=== PATIENT | female | born 1980 | race African-American/Black ===

== ENCOUNTER 2017-05-10 08:42 | Emergency (ER) | payer OTHER ==
[2017-05-10 08:50] VITALS: BMI 35.1
--- NOTE | 2017-05-10 09:01 | PDOC ---
Attending Attestation - Resident Resident Name: Erica Llanes - ED Attending Attestation I have performed the following: I have examined & evaluated the patient, The case was reviewed & discussed with the resident, I agree w/resident's findings & plan, Exceptions are as noted - HPI HPI: 05/10/17 09:18 37yo F p/w painless vaginal bleeding since last night. Noticed bright red blood on toilet paper after urinating 3 times since. No associated pain, fevers , chills, n/v/d, cp, sob, headache. Last BM last night was normal. TVUS on Friday by OB was wnl. - Physicial Exam PE: 05/10/17 09:19 GENERAL: Awake, alert, and fully oriented, in no acute distress HEAD: No signs of trauma EYES: PERRLA, EOMI, sclera anicteric, conjunctiva clear ENT: Auricles normal inspection, hearing grossly normal, nares patent, oropharynx clear without exudates. Moist mucosa NECK: Normal ROM, supple, no lymphadenopathy, JVD, or masses LUNGS: Breath sounds equal, clear to auscultation bilaterally. No wheezes, and no crackles HEART: Regular rate and rhythm, normal S1 and S2, no murmurs, rubs or gallops ABDOMEN: Soft, nontender, normoactive bowel sounds. No guarding, no rebound. No masses HAM STRINGER: Os closed, no bleeding in vault, no midline or adnexal ttp. No CMT or vag discharge EXTREMITIES: Normal range of motion, no edema. No clubbing or cyanosis. No cords, erythema, or tenderness NEUROLOGICAL: Normal speech, cranial nerves intact, negative pronator drift, 5/ 5 strength in all 4 extremities, normal sensation to light touch in all 4 extremities, normal cerebellar exam, normal gait, normal reflexes and tone SKIN: Warm, Dry, normal turgor, no rashes or lesions noted. - Medical Decision Making 05/10/17 09:23 37yo F p/w vaginal bleeding. Vitals wnl. Likely threatened AB -labs -TVUS -UA -reassess 05/10/17 11:47 TVUs wnl. Labs wnl. UA neg for infection, Ucx pending. No bleeding in ED. Pt feels well. Likely threatened Ab. I discussed the physical exam findings, ancillary test results and final diagnoses with the patient. I answered all of the patient's questions. The patient was satisfied with the care received and felt comfortable with the discharge plan and treatment plan. The patient will call their primary care physician within 24 hours to arrange follow-up and will return to the Emergency Department with any new, persistent or worsening symptoms.
--- NOTE | 2017-05-10 09:10 | PDOC ---
History of Present Illness - General Chief Complaint: Vaginal Bleeding Stated Complaint: VAGINAL BLEEDING (10 WKS ) Time Seen by Provider: 05/10/17 08:57 - History of Present Illness Initial Comments: 05/10/17 09:25 Patient is a 37 y.o. + 2 spontaneous abortions @ 9 and 10 weeks respectively who presents c/o of vaginal bleed. Patient notes she saw bright red blood when wiping during urination. Patient denies any associated abdominal cramping, dysuria, increased urgency or frequency. Of note, patient was evaluated by her conference concierge, Dr. Che earlier this week at which time she had a TVUS and was told everything was "normal." Patient further notes that her previous pregnancies were without complications. NKDA Surgical: Denies Social: denies cigarettes, denies alcohol, denies recreational drugs Past History - Past Medical History Allergies/Adverse Reactions: Allergies Allergy/AdvReac Type Severity Reaction Status Date / Time No Known Allergies Allergy Verified 05/10/17 09:28 Home Medications: Ambulatory Orders Vits #93/Iron Fum/FA [ Formula Tablet] 1 each PO DAILY COPD: No Thyroid Disease: No - Suicide/Smoking/Psychosocial Hx Smoking History: Never smoked Have you smoked in the past 12 months: No Information on smoking cessation initiated: No Hx Alcohol Use: No Drug/Substance Use Hx: No Substance Use Type: None Review of Systems - Review of Systems Constitutional: No: Chills, Fever Respiratory: No: Shortness of Breath Cardiac (ROS): No: Chest Pain ABD/GI: No: Constipated, Diarrhea, Nausea, Vomiting, Abdominal cramping : No: Burning, Dysuria All Other Systems: Reviewed and Negative *Physical Exam - Vital Signs Last Vital Signs Temp Pulse Resp BP Pulse Ox 98.8 F 75 18 106/58 100 05/10/17 08:47 05/10/17 08:47 05/10/17 08:47 05/10/17 08:47 05/10/17 08:47 - Physical Exam General Appearance: Yes: Nourished, Appropriately Dressed Neck: positive: Trachea midline, Supple Respiratory/Chest: positive: Lungs Clear, Normal Breath Sounds Cardiovascular: positive: S1, S2 Female Pelvic Exam: positive: normal external exam, cervical os closed, CMT, other (cervical os closed, no appreciable blood in vaginal vault). negative: discharge, vaginal bleeding Gastrointestinal/Abdominal: positive: Normal Bowel Sounds, Soft. negative: Guarding, Rebound, Tenderness, Hernia, Mass Extremity: positive: Normal Capillary Refill, Normal Inspection Integumentary: positive: Normal Color, Dry, Warm Neurologic: positive: Fully Oriented, Alert ED Treatment Course - LABORATORY CBC & Chemistry Diagram: 05/10/17 09:28 05/10/17 09:28 Medical Decision Making - Medical Decision Making 05/10/17 10:06 Patient is a 37 y.o. female @ 10 weeks gestation who presents with vaginal spotting. Initial DDx is for threatened vs. physiologic spotting of . PLAN: 1. CBC, CMP, B-HCG 2. UA 3. Transvaginal U/S 05/10/17 11:02 TVUS shows IUP @ 10 week 1 day. B-HCG 21,785 - c/w reported dates. CBC shows no leukocytosis, no anemia, UA nitrite negative. 05/10/17 11:26 05/10/17 11:27 Patient to be discharged home. *DC/Admit/Observation/Transfer Diagnosis at time of Disposition: Vaginal spotting - Discharge Dispostion Disposition: HOME - Referrals Referrals: Bisi Pedro MD [Primary Care Provider] - - Patient Instructions Printed Discharge Instructions: Managing Symptoms of , Vaginal Bleeding During Additional Instructions: Please follow-up with Dr. Che in the next 1 week. Please return to the Emergency Department for any worsening or concerning symptoms. - Post Discharge Activity Forms/Work/School Notes: Back to Work
[2017-05-10 09:56] LABS: EOSINOPHIL 2.5 % (0-4.5); MCH 25.9 pg (25.7-33.7); MCHC 32.1 g/dl (32.0-36.0); MEAN CELL VOLUME 80.8 fl (80-96); MEAN PLT VOLUME 9.8 fl (7.5-11.1); NEUTROPHILS 64.3 % (42.8-82.8); PLATELET COUNT 226 K/MM3 (134-434); RDW 15.8 % (11.6-15.6); WHITE BLOOD COUNT 7.6 K/mm3 (4.0-10.0)
[2017-05-10 10:00] LABS: URINE APPEARANCE CLEAR; URINE BILIRUBIN NEGATIVE (NEGATIVE); URINE BLOOD 1+ (NEGATIVE); URINE COLOR LTYELLOW; URINE GLUCOSE (UA) NEGATIVE (NEGATIVE); URINE KETONE NEGATIVE (NEGATIVE); URINE NITRITE NEGATIVE (NEGATIVE); URINE PROTEIN NEGATIVE (NEGATIVE); URINE UROBILINOGEN NEGATIVE mg/dL (0.2-1.0)
[2017-05-10 10:25] LABS: ALBUMIN 3.2 g/dl (3.4-5.0); ANION GAP 10 (8-16); BILIRUBIN,TOTAL 0.2 mg/dL (0.2-1.0); CALCIUM 8.2 mg/dL (8.5-10.1); CO2 24 mmol/L (21-32); CREATININE 0.6 mg/dL (0.55-1.02); GLUCOSE,RANDOM 132 mg/dL (74-106); SGOT/AST 10 U/L (15-37); SGPT/ALT 16 U/L (12-78); TOT PROT 7.1 g/dl (6.4-8.2)
[2017-05-10 10:41] LABS: ALK PHOS 46 U/L (45-117)
[2017-05-10 11:17] LABS: URINE MUCUS RARE; URINE WBC < 1
[2017-05-10 11:19] LABS: URINE RBC < 1
[2017-05-10 11:46] VITALS: BP 103/54; PULSE 81; TEMP 98.3
[2017-05-10 15:23] LABS: URINE LEUK ESTERASE Negative (NEGATIVE)
== END 2017-05-10 12:06 | disposition home or self-care (01) ==
LOC: JER 08:42
DX: O20.0 Threatened abortion (principal); Z3A.10 10 weeks gestation of pregnancy
CPT/HCPCS: 36415; 76801-TC; 80053; 81003; 81015; 84702; 85025; 86850; 86900; 86901; 87086; 99284-25

== ENCOUNTER 2017-10-10 02:20 | Inpatient (IN) | payer OTHER ==
[2017-10-10] MEDS ORDERED: BETAMET ACET/BETAMET NA PH 30 MG/5 ML VIAL IM ONE (02:40)
[2017-10-10] MEDS: SODIUM CHLORIDE 1,000 ML IV SCH ×3 (02:50→20:43)
[2017-10-10] MEDS ORDERED: BETAMET ACET/BETAMET NA PH 30 MG/5 ML VIAL ONE (03:42)
--- NOTE | 2017-10-10 14:47 | HP ---
Past Medical History - Primary Care Physician PCP:: Bisi Pedro - Admission Chief Complaint: Vaginal bleeding at 32 weeks. Placenta previa History Source: Patient - Past Medical History ...: 7 ...Para: 3 ...Term: 3 ...: 0 ...Spon : 0 ...Induced : 0 ... Weeks Gestation by Dates: 32.3 ...EDC by Dates: 12/02/17 - Past Surgical History Past Surgical History: Yes: None Hx Myomectomy: No Hx Transabdominal Cerclage: No - Smoking History Smoking history: Never smoked Have you smoked in the past 12 months: No - Alcohol/Substance Use Hx Alcohol Use: No - Social History Usual Living Arrangement: Yes: With Spouse History of Recent Travel: No Home Medications - Allergies Allergies/Adverse Reactions: Allergies Allergy/AdvReac Type Severity Reaction Status Date / Time No Known Allergies Allergy Verified 10/10/17 03:28 - Home Medications Home Medications: Ambulatory Orders Vit 93/Iron Fum/Folic [ Formula Tablet] 1 each PO DAILY Review of Systems - Review of Systems Constitutional: reports: No Symptoms Eyes: reports: No Symptoms HENT: reports: No Symptoms Neck: reports: No Symptoms Cardiovascular: reports: No Symptoms Respiratory: reports: No Symptoms Gastrointestinal: reports: No Symptoms Genitourinary: reports: Vaginal Bleeding Breasts: reports: No Symptoms Reported Musculoskeletal: reports: No Symptoms Integumentary: reports: No Symptoms Neurological: reports: No Symptoms Endocrine: reports: No Symptoms Hematology/Lymphatic: reports: No Symptoms Psychiatric: reports: No Symptoms Physical Exam - Maternity Vital Signs: Vital Signs Temperature 98.4 F 10/10/17 02:20 Pulse Rate 84 10/10/17 02:20 Respiratory Rate 20 10/10/17 02:20 Blood Pressure 118/71 10/10/17 02:20 O2 Sat by Pulse Oximetry (%) Hemorrhage Risk Assessment - Risk Factors Risk Score: 1 Risk Level: Medium Risk Problem List - Problems (1) Third trimester bleeding, antepartum Code(s): O46.93 - ANTEPARTUM HEMORRHAGE, UNSPECIFIED, THIRD TRIMESTER (2) 32 weeks gestation of Code(s): Z3A.32 - 32 WEEKS GESTATION OF Assessment/Plan IUP at 32 weeks third trimester bleeding [facility]
[2017-10-10] MEDS ORDERED: ACETAMINOPHEN 650 MG/20.3 ML ORAL SOLUTION (CUPS) PO PRN (14:49)
[2017-10-10] MEDS ORDERED: ELECTROLYTE-148 SOLN 1,000 ML IV SCH (15:00)
[2017-10-10 15:23] VITALS: BMI 39.1
[2017-10-10 17:02] LABS: BASO % 0.2 % (0-2.0); HEMATOCRIT 31.6 % (32.4-45.2); HEMOGLOBIN 10.5 GM/dL (10.7-15.3); LYMPH % 9.4 % (8-40); MCH 27.7 pg (25.7-33.7); MCHC 33.2 g/dl (32.0-36.0); MEAN CELL VOLUME 83.4 fl (80-96); MEAN PLT VOLUME 10.4 fl (7.5-11.1); MONO % 6.7 % (3.8-10.2); NEUT % 83.7 % (42.8-82.8); PLATELET COUNT 179 K/MM3 (134-434); RBC 3.79 M/mm3 (3.60-5.2); RDW 16.4 % (11.6-15.6); WHITE BLOOD COUNT 8.7 K/mm3 (4.0-10.0)
[2017-10-10 17:27] LABS: ANION GAP 7 (8-16); BLOOD UREA NITROGEN 6 mg/dL (7-18); CALCIUM 8.4 mg/dL (8.5-10.1); CHLORIDE 110 mmol/L (98-107); CO2 22 mmol/L (21-32); CREATININE 0.5 mg/dL (0.55-1.02); GLUCOSE,RANDOM 125 mg/dL (74-106); POTASSIUM 4.1 mmol/L (3.5-5.1); PROTHROMBIN TIME (PATIENT) 11.3 SEC (9.98-11.88); SODIUM 139 mmol/L (136-145)
[2017-10-10 17:30] LABS: ACTIVATED PTT 25.9 SECONDS (26.9-34.4)
[2017-10-11] MEDS: SODIUM CHLORIDE 1,000 ML IV SCH ×2 (03:01→06:00)
[2017-10-11] MEDS ORDERED: BETAMET ACET/BETAMET NA PH 30 MG/5 ML VIAL IM ONE (03:14)
[2017-10-11 06:02] VITALS: PULSE 87
--- NOTE | 2017-10-11 08:07 | DS ---
Physical Exam-KETTLE TENDER Vital Signs: Vital Signs Temperature 98.4 F 10/11/17 06:01 Pulse Rate 87 10/11/17 06:01 Respiratory Rate 18 10/11/17 06:01 Blood Pressure 98/45 10/11/17 06:01 O2 Sat by Pulse Oximetry (%) Constitutional: Yes: Well Nourished Eyes: Yes: Conjunctiva Clear HENT: Yes: Atraumatic Neck: Yes: Supple, Trachea Midline Cardiovascular: Yes: Regular Rate and Rhythm Respiratory: Yes: Regular, CTA Bilaterally Gastrointestinal: Yes: Normal Bowel Sounds, Other (Gravid) External Genitalia: Yes: Normal Vaginal Exam: No: Bleeding Cervix: No: Bleeding Breast(s): Yes: WNL Musculoskeletal: Yes: WNL Extremities: No: Calf Tenderness Neurological: Yes: Alert, Oriented ...Motor Strength: WNL Psychiatric: Yes: Alert, Oriented Labs: CBC, BMP 10/10/17 16:30 10/10/17 16:30 Delivery, Single - [place] Feeding Plan Initial Plan: Elected not to breastfeed exclusively throughout hospitalization Discharge Summary Reason For Visit: Vaginal bleeding Current Active Problems 32 weeks gestation of (Acute) Third trimester bleeding, antepartum (Acute) Procedures: Principal: Observation Hospital Course: 37 yo @ 32 weeks gestation, with Placenta Previa admitted for vaginal bleeding. After 24 hour of observation, bleeding subsided. Condition: Good - Instructions Diet, Activity, Other Instructions: Regular diet No sexual intercourse Call MD if bleeding Disposition: HOME - Home Medications Comprehensive Discharge Medication List: Ambulatory Orders Vit 93/Iron Fum/Folic [ Formula Tablet] 1 each PO DAILY
[2017-10-11 10:45] VITALS: BP 98/53; TEMP 98.5
== END 2017-10-11 09:46 | disposition home or self-care (01) | DRG 566 ==
LOC: JDEL 02:20 → JLDR 14:30 → J3W 16:43
PROVIDERS: ADMIT Obstetrics & Gynecology; ATTEND Obstetrics & Gynecology
DX: O44.13 Complete placenta previa with hemorrhage, third trimester (principal); Z3A.32 32 weeks gestation of pregnancy
CPT/HCPCS: 36415; 59025; 76801-TC; 80048; 82962; 85025; 85610; 85730; 86593; 86850; 86900; 86901; 96372; J7030

== ENCOUNTER 2017-11-11 06:55 | Inpatient (IN) | payer OTHER ==
[2017-11-11] MEDS ORDERED: CITRIC ACID/SODIUM CITRATE 30 ML UNIT-DOSE CUP PO ONE (07:32)
--- NOTE | 2017-11-11 07:39 | HP ---
Past Medical History - Primary Care Physician PCP:: Bisi Pedro - Admission Chief Complaint: Placenta Previa. Vaginal bleeding History of Present Illness: 37 yo G P EDC EGA 37 weekswith marginal previa with c/o bleeding Pt followed by MFM History Source: Patient - Past Medical History ...: 6 ...Para: 3 ...Spon : 2 ...EDC by Nicki: 12/02/17 - Past Surgical History Past Surgical History: Yes: None Hx Myomectomy: No Hx Transabdominal Cerclage: No - Smoking History Smoking history: Never smoked Have you smoked in the past 12 months: No - Alcohol/Substance Use Hx Alcohol Use: No History of Substance Use: reports: None - Social History Usual Living Arrangement: Yes: With Spouse History of Recent Travel: No Home Medications - Allergies Allergies/Adverse Reactions: Allergies Allergy/AdvReac Type Severity Reaction Status Date / Time No Known Allergies Allergy Verified 10/10/17 03:28 - Home Medications Home Medications: Ambulatory Orders Vit 93/Iron Fum/Folic [ Formula Tablet] 1 each PO DAILY Review of Systems - Review of Systems Constitutional: reports: No Symptoms Eyes: reports: No Symptoms HENT: reports: No Symptoms Neck: reports: No Symptoms Cardiovascular: reports: No Symptoms Respiratory: reports: No Symptoms Gastrointestinal: reports: No Symptoms Genitourinary: reports: No Symptoms, Vaginal Bleeding, Other (ROM) Breasts: reports: No Symptoms Reported Musculoskeletal: reports: No Symptoms Integumentary: reports: No Symptoms Neurological: reports: No Symptoms Endocrine: reports: No Symptoms Hematology/Lymphatic: reports: No Symptoms Psychiatric: reports: No Symptoms Physical Exam - Maternity Constitutional: Yes: Well Nourished, No Distress Cardiovascular: Yes: WNL, Regular Rate and Rhythm Lungs: Clear to auscultation Breast(s): Yes: WNL - Abdominal Exam/OB Fundal Height: 37 Number of Fetuses: Single Presentation: Vertex Category: I - Vaginal Exam/OB Amniotic Membrane Status: Ruptured Presentation: Vertex/Position - Physical Exam Psychiatric: Yes: WNL, Alert, Oriented Hemorrhage Risk Assessment - Risk Factors High Risk Factors: Yes: Active bleeding on admission Risk Score: 2 Risk Level: High Risk Assessment/Plan IUP @37 week Vaginal bleeding PLacenta previa Plan Section T C x 2 notify anesthsia and neonatology
[2017-11-11] MEDS ORDERED: ELECTROLYTE-148 SOLN 1,000 ML IV SCH (07:45)
[2017-11-11 08:04] VITALS: BMI 35.2
[2017-11-11 08:08] LABS: BASO % 0.6 % (0-2.0); EOS % 1.5 % (0-4.5); HEMATOCRIT 33.7 % (32.4-45.2); LYMPH % 21.3 % (8-40); MCH 26.9 pg (25.7-33.7); MCHC 32.6 g/dl (32.0-36.0); MEAN CELL VOLUME 82.5 fl (80-96); MEAN PLT VOLUME 9.9 fl (7.5-11.1); MONO % 14.1 % (3.8-10.2); NEUT % 62.5 % (42.8-82.8); PLATELET COUNT 169 K/MM3 (134-434); RBC 4.08 M/mm3 (3.60-5.2); RDW 15.7 % (11.6-15.6); WHITE BLOOD COUNT 5.8 K/mm3 (4.0-10.0)
[2017-11-11 08:29] LABS: BLOOD UREA NITROGEN 5 mg/dL (7-18); CALCIUM 7.9 mg/dL (8.5-10.1); CO2 27 mmol/L (21-32); CREATININE 0.6 mg/dL (0.55-1.02); GLUCOSE,RANDOM 93 mg/dL (74-106)
[2017-11-11 08:33] LABS: ANION GAP 7 (8-16); CHLORIDE 105 mmol/L (98-107); POTASSIUM 4.2 mmol/L (3.5-5.1); SODIUM 139 mmol/L (136-145)
[2017-11-11 08:35] LABS: INR 0.96 (0.82-1.09); PROTHROMBIN TIME (PATIENT) 10.8 SEC (9.7-13.0)
[2017-11-11 08:38] LABS: ACTIVATED PTT 18.4 SECONDS (26.9-34.4)
[2017-11-11] MEDS ORDERED: BUPIVACAINE 0.75% IN DEXTROSE/PF 2ML AMPULE NR ONE (09:37)
[2017-11-11] MEDS ORDERED: morphine SULFATE/Preservative Free 0.5 MG/ML (1cc Syringe) ONE (09:37)
[2017-11-11] MEDS ORDERED: PHENYLEPHRINE HCL 10 MG/1 ML SINGLE DOSE VIAL ONE (09:39)
[2017-11-11] MEDS ORDERED: OXYTOCIN 20 UNITS in 0.9% NS 20 UNIT/1,000 ML INFUS.BAG IV ONE ×2 (09:41→12:39)
[2017-11-11] MEDS ORDERED: OXYTOCIN 10 UNITS/ML VIAL ONE (09:42)
[2017-11-11] MEDS ORDERED: ceFAZolin SODIUM 1 GM VIAL ONE (09:59)
[2017-11-11] MEDS ORDERED: SODIUM CHLORIDE 0.9% P/F 10 ML VIAL IJ ONE (09:59)
[2017-11-11 11:01] LABS: VENOUS PC02 41.2 mmHg (38-52); VENOUS PH 7.4 (7.32-7.42); VENOUS PO2 35.2 mmHg (28-48)
[2017-11-11] MEDS ORDERED: METHYLERGONOVINE MALEATE 0.2 MG/1 ML AMP IM PRN (11:01)
[2017-11-11] MEDS ORDERED: SENNOSIDES/DOCUSATE COMBO (SENNA PLUS) TABLET (UD) PO PRN (11:01)
[2017-11-11 11:02] LABS: ARTERIAL BLD GAS O2 SATURATION 36.5 % (90-98.9); ARTERIAL BLOOD GAS PCO2 53.6 mmHg (35-45); ARTERIAL BLOOD GAS PO2 19.4 mmHg (80-100); ARTERIAL BLOOD GAS pH 7.31 (7.35-7.45)
[2017-11-11 11:03] LABS: ARTERIAL BLOOD GAS BASE EXCESS -0.4 meq/l (-2-2)
[2017-11-11] MEDS ORDERED: OXYTOCIN 20 UNITS in 0.9% NS 20 UNIT/1,000 ML INFUS.BAG IV SCH (11:15)
[2017-11-11] MEDS ORDERED: ONDANSETRON 4 MG/2 ML VIAL IVPUSH PRN (11:16)
[2017-11-11] MEDS ORDERED: TUBERCULIN PPD 5 TU/0.1ML SYRINGE (IN PATIENT USE ONLY) ID ONE (14:45)
[2017-11-12] MEDS: IBUPROFEN 600 MG TABLET (FP) PO PRN ×3 (05:19→18:06)
[2017-11-12] MEDS: SIMETHICONE 80 MG TAB.CHEW (FP) PO PRN ×3 (05:19→18:03)
[2017-11-12] MEDS: ACETAMINOPHEN 325 MG TABLET (FP) PO PRN ×3 (05:21→18:04)
[2017-11-12 06:06] LABS: HBsAG SCREEN Negative (Negative)
[2017-11-12 07:40] LABS: BASO % 0.3 % (0-2.0); EOS % 0.4 % (0-4.5); HEMATOCRIT 32.2 % (32.4-45.2); HEMOGLOBIN 10.6 GM/dL (10.7-15.3); LYMPH % 8.9 % (8-40); MCH 27.2 pg (25.7-33.7); MCHC 32.9 g/dl (32.0-36.0); MEAN CELL VOLUME 82.6 fl (80-96); MEAN PLT VOLUME 10.3 fl (7.5-11.1); MONO % 11.9 % (3.8-10.2); NEUT % 78.5 % (42.8-82.8); PLATELET COUNT 148 K/MM3 (134-434); RBC 3.89 M/mm3 (3.60-5.2); RDW 15.2 % (11.6-15.6)
--- NOTE | 2017-11-12 08:48 | PN ---
Progress Note (short form) - Note Progress Note: POD #1 - s/p under spinal anesthesia with duramorph. VSS. Pt. doing well, sitting up comfortably in chair. C/o some itching, benadryl given. Good pain control. No apparent anesthetic complications noted. Continue current care.
[2017-11-12] MEDS ORDERED: DIPHTH,PERTUSS(ACELL),TET 0.5 ML DISP.SYRIN IM ONE (10:00)
[2017-11-12] MEDS ORDERED: oxyCODONE HCL 5 MG TABLET PO PRN (11:01)
[2017-11-12] MEDS ORDERED: BISACODYL 10 MG SUPP.RECT RC PRN (11:01)
[2017-11-12 14:13] LABS: RUBELLA ANTIBODY,IGM <20.0 AU/mL (0.0-19.9)
[2017-11-12] MEDS: oxyCODONE HCL 5 MG TABLET PO PRN (19:31)
--- NOTE | 2017-11-12 21:08 | PN ---
Post Progress Note - Subjective Subjective: Some incisional pain, otherwise no complaints. Pt seen/evaluated. Doing well. OOB to chair . Ambulating, voiding, passing flatus, satinder reg diet. Type of Delivery: Primary C/S Vital Signs: Vital Signs Temperature 98.8 F 11/12/17 09:44 Pulse Rate 79 11/12/17 09:44 Respiratory Rate 18 11/12/17 10:56 Blood Pressure 113/61 11/12/17 09:44 O2 Sat by Pulse Oximetry (%) 98 11/11/17 12:35 Uterus: Yes: Fundus Firm Incision: Yes: Dressing dry and intact Abdomen/GI: Yes: Abdomen soft, Passing flatus, Tolerating PO. No: Abdominal Distention Lochia: Yes: Rubra Lochia, amount: Small Extremities: Yes: Calves non-tender Perineum: Yes: Intact Activity: Ambulating - Labs Labs: CBC WBC 14.0 K/mm3 (4.0-10.0) H D 11/12/17 07:12 RBC 3.89 M/mm3 (3.60-5.2) 11/12/17 07:12 Hgb 10.6 GM/dL (10.7-15.3) L 11/12/17 07:12 Hct 32.2 % (32.4-45.2) L 11/12/17 07:12 MCV 82.6 fl (80-96) 11/12/17 07:12 MCH 27.2 pg (25.7-33.7) 11/12/17 07:12 MCHC 32.9 g/dl (32.0-36.0) 11/12/17 07:12 RDW 15.2 % (11.6-15.6) 11/12/17 07:12 Plt Count 148 K/MM3 (134-434) 11/12/17 07:12 MPV 10.3 fl (7.5-11.1) 11/12/17 07:12 Neutrophils % 78.5 % (42.8-82.8) D 11/12/17 07:12 Lymphocytes % 8.9 % (8-40) D 11/12/17 07:12 Monocytes % 11.9 % (3.8-10.2) H 11/12/17 07:12 Eosinophils % 0.4 % (0-4.5) 11/12/17 07:12 Basophils % 0.3 % (0-2.0) 11/12/17 07:12 Problem List - Problems (1) delivery delivered Code(s): O82 - ENCOUNTER FOR DELIVERY WITHOUT INDICATION (2) Anemia, blood loss Code(s): D50.0 - IRON DEFICIENCY ANEMIA SECONDARY TO BLOOD LOSS (CHRONIC) Assessment/Plan 37 y/o POD#1 s/p delivery for placenta previa and VB - AFVSS - Hgb 10.6, very mild anemia, pt asymptomatic, will monitor, continue vitamins - regular diet, PO pain meds - encourage ambulation -routine post care
[2017-11-13] MEDS: SIMETHICONE 80 MG TAB.CHEW (FP) PO PRN ×3 (02:20→16:31)
[2017-11-13] MEDS: ACETAMINOPHEN 325 MG TABLET (FP) PO PRN (02:20)
[2017-11-13] MEDS: oxyCODONE HCL 5 MG TABLET PO PRN ×3 (02:20→16:32)
--- NOTE | 2017-11-13 06:57 | PN ---
Post Progress Note - Subjective Subjective: Pt seen/evaluated. No complaints this a.m. Type of Delivery: Primary C/S Vital Signs: Vital Signs Temperature 98.4 F 11/12/17 21:49 Pulse Rate 74 11/12/17 21:49 Respiratory Rate 20 11/12/17 21:49 Blood Pressure 111/57 11/12/17 21:49 O2 Sat by Pulse Oximetry (%) 98 11/11/17 12:35 Uterus: Yes: Fundus Firm Incision: Yes: Dressing dry and intact Abdomen/GI: Yes: Abdomen soft, Passing flatus, Tolerating PO Lochia: Yes: Rubra Lochia, amount: Small Extremities: Yes: Calves non-tender, Edema (trace edema b/l lower extremeties) Perineum: Yes: Intact Activity: Ambulating - Labs Labs: CBC WBC 14.0 K/mm3 (4.0-10.0) H D 11/12/17 07:12 RBC 3.89 M/mm3 (3.60-5.2) 11/12/17 07:12 Hgb 10.6 GM/dL (10.7-15.3) L 11/12/17 07:12 Hct 32.2 % (32.4-45.2) L 11/12/17 07:12 MCV 82.6 fl (80-96) 11/12/17 07:12 MCH 27.2 pg (25.7-33.7) 11/12/17 07:12 MCHC 32.9 g/dl (32.0-36.0) 11/12/17 07:12 RDW 15.2 % (11.6-15.6) 11/12/17 07:12 Plt Count 148 K/MM3 (134-434) 11/12/17 07:12 MPV 10.3 fl (7.5-11.1) 11/12/17 07:12 Neutrophils % 78.5 % (42.8-82.8) D 11/12/17 07:12 Lymphocytes % 8.9 % (8-40) D 11/12/17 07:12 Monocytes % 11.9 % (3.8-10.2) H 11/12/17 07:12 Eosinophils % 0.4 % (0-4.5) 11/12/17 07:12 Basophils % 0.3 % (0-2.0) 11/12/17 07:12 Problem List - Problems (1) delivery delivered Code(s): O82 - ENCOUNTER FOR DELIVERY WITHOUT INDICATION (2) Anemia, blood loss Code(s): D50.0 - IRON DEFICIENCY ANEMIA SECONDARY TO BLOOD LOSS (CHRONIC) Assessment/Plan 37 y/o POD#2 s/p delivery for placenta previa and VB - AFVSS - Hgb 10.6, pt stable, will monitor, continue vitamins - regular diet, PO pain meds - encourage ambulation -routine post care
[2017-11-13] MEDS: IBUPROFEN 600 MG TABLET (FP) PO PRN ×2 (08:45→16:31)
[2017-11-14] MEDS: IBUPROFEN 600 MG TABLET (FP) PO PRN ×3 (04:19→19:57)
[2017-11-14] MEDS: SIMETHICONE 80 MG TAB.CHEW (FP) PO PRN ×2 (04:19→19:57)
[2017-11-14] MEDS: ACETAMINOPHEN 325 MG TABLET (FP) PO PRN (04:20)
[2017-11-14 07:30] LABS: BASO % 0.6 % (0-2.0); EOS % 2.1 % (0-4.5); HEMATOCRIT 26.9 % (32.4-45.2); HEMOGLOBIN 9.1 GM/dL (10.7-15.3); LYMPH % 17.6 % (8-40); MCH 27.7 pg (25.7-33.7); MCHC 33.6 g/dl (32.0-36.0); MEAN CELL VOLUME 82.4 fl (80-96); MEAN PLT VOLUME 9.7 fl (7.5-11.1); MONO % 14.7 % (3.8-10.2); PLATELET COUNT 156 K/MM3 (134-434); RBC 3.27 M/mm3 (3.60-5.2); RDW 15.2 % (11.6-15.6); WHITE BLOOD COUNT 9.7 K/mm3 (4.0-10.0)
[2017-11-14] MEDS: oxyCODONE HCL 5 MG TABLET PO PRN ×2 (08:13→19:52)
--- NOTE | 2017-11-14 16:16 | PN ---
Progress Note (SOAP) - Subjective Chief Complaint: Pt doing well desires circ - Current Medications Current Medications: Active Medications Acetaminophen (Tylenol -) 650 mg PO Q4H PRN PRN Reason: FEVER Last Admin: 11/14/17 04:20 Dose: 650 mg Bisacodyl (Dulcolax Suppository -) 10 mg RC PRN PRN PRN Reason: CONSTIPATION Diphenhydramine HCl (Benadryl Injection -) 25 mg IVPUSH Q4H PRN PRN Reason: Pruritis Last Admin: 11/11/17 21:47 Dose: 25 mg Ibuprofen (Motrin -) 600 mg PO Q4H PRN PRN Reason: PAIN LEVEL 1 - 3 Last Admin: 11/14/17 08:12 Dose: 600 mg Methylergonovine Maleate (Methergine Injection -) 0.2 mg IM Q4H PRN PRN Reason: Excessive Bleeding (L&D) Last Admin: 11/11/17 20:29 Dose: 0.2 mg Ondansetron HCl (Zofran Injection) 4 mg IVPUSH Q4H PRN PRN Reason: NAUSEA Oxycodone HCl (Roxicodone -) 5 mg PO Q4H PRN PRN Reason: PAIN LEVEL 4 - 6 Oxycodone HCl (Roxicodone -) 10 mg PO Q4H PRN PRN Reason: PAIN LEVEL 7 - 10 Last Admin: 11/14/17 08:13 Dose: 10 mg Senna/Docusate Sodium (Pericolace -) 2 tablet PO HS PRN PRN Reason: CONSTIPATION Simethicone (Mylicon -) 80 mg PO Q4H PRN PRN Reason: GAS Last Admin: 11/14/17 04:19 Dose: 80 mg - Objective Vital Signs: Vital Signs Temperature 98.7 F 11/14/17 10:00 Pulse Rate 78 11/14/17 10:00 Respiratory Rate 78 H 11/14/17 10:00 Blood Pressure 104/64 11/14/17 10:00 O2 Sat by Pulse Oximetry (%) 98 11/11/17 12:35 Constitutional: Yes: Well Nourished, No Distress Neck: Yes: WNL, Supple Gastrointestinal: Yes: WNL, Soft ....Post : Yes: Uterus firm, Uterus non-tender Breast(s): Yes: WNL Musculoskeletal: Yes: WNL Extremities: Yes: WNL Edema: No Wound/Incision: Yes: Well Approximated, Open to air Neurological: Yes: WNL, Alert, Oriented Labs Lab Results: CBC, BMP 11/14/17 07:06 11/11/17 07:45 Problem List - Problems (1) delivery delivered Code(s): O82 - ENCOUNTER FOR DELIVERY WITHOUT INDICATION (2) Placenta previa antepartum Code(s): O44.00 - COMPLETE PLACENTA PREVIA NOS OR WITHOUT HEMOR, UNSP TRI Assessment/Plan SP CS due to previa bleeding POD3 SP placenta previa Plan DC home in am RTO 1 week
[2017-11-15] MEDS: oxyCODONE HCL 5 MG TABLET PO PRN (02:30)
[2017-11-15] MEDS: SIMETHICONE 80 MG TAB.CHEW (FP) PO PRN ×2 (02:30→12:43)
[2017-11-15] MEDS: IBUPROFEN 600 MG TABLET (FP) PO PRN ×2 (02:32→12:44)
[2017-11-15 09:30] VITALS: BP 117/67; PULSE 81; TEMP 98.3
[2017-11-15] MEDS: ACETAMINOPHEN 325 MG TABLET (FP) PO PRN (12:44)
--- NOTE | 2017-11-19 16:49 | PATH ---
Surgical Pathology Report Patient Name: JUAN CORONEL [facility]. Rec. 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 Specimen(s) Received PLACENTA Clinical History A Gestational diabetic-diet controlled , 37 weeks Placenta previa with bleeding, AMA x , 12/28, 11/01 SPAB x3 Final Diagnosis PLACENTA: MATURE THIRD TRIMESTER PLACENTA. TRIVASCULAR CORD. MEMBRANOUS WITH NO DIAGNOSTIC ABNORMALITIES. Electronically Signed Seun Mcclain M.D. Gross Description The specimen is received fresh labeled placenta and is a 372 gram, 14.5 x 13.0 x 2.8 cm. placenta with attached membranes and umbilical cord. The attached membranes are amaya, translucent with focal opacities and insert marginally. The umbilical cord measures 10.5 cm. in length and averages 1.2 cm. in diameter. The cord inserts eccentrically, 4 cm. to the nearest margin. No true knots or strictures are identified. Cut surface of the umbilical cord reveals 3 vessels. The surface is russell-blue with minimal fibrin deposition and appropriate caliber vessels. The maternal surface is red-brown and intact. Sectioning reveals red-brown, spongy parenchyma. No lesions are identified. Adoption Counselor sections are submitted in three cassettes as follows: 1- membrane rolls and umbilical cord; 2-3- full thickness sections of placenta. /11/18/2017 [facility]11/18/2017
== END 2017-11-15 13:10 | disposition home or self-care (01) | DRG 540 ==
LOC: JLDR 06:55 → J3W 13:24
PROVIDERS: ADMIT Obstetrics & Gynecology; ATTEND Obstetrics & Gynecology
PROC: 10D00Z1 Extraction of Products of Conception, Low, Open Approach (ICD-10-PCS; principal; 2017-11-11)
DX: O44.03 Complete placenta previa NOS or without hemorrhage, third trimester (principal); O90.81 Anemia of the puerperium; Z3A.37 37 weeks gestation of pregnancy; Z37.0 Single live birth
CPT/HCPCS: 36415; 36600; 80048; 82803; 85025; 85610; 85730; 86593; 86762; 86850; 86900; 86901; 87340; 88307-TC; 90715